=== PATIENT | male | born 1960 | race Caucasian/White ===

== ENCOUNTER 2024-04-23 09:18 | Outpatient (AMB) | payer OTHER, SELFPAY ==
[2024-04-23 10:06] VITALS: BP 129/76; PULSE 66; RESP 17; TEMP 36.3; O2SAT 17; BMI 28.9
--- NOTE | 2024-04-23 10:06 | ORTHONT_ITS ---
Vital signs 04/23/24 10:06 Height 1.7 m Height Method Stated Weight 83.716 kg Weight Measurement Method Standing Scale BMI 28.9 BP 129/76 Blood Pressure Source Automatic Cuff Blood Pressure Location Right Upper Arm Position Sitting Respiration 17 Pulse 66 Pulse Source Monitor Temp 97.3 F Temp Source Temporal Artery Scan Pulse Oximetry (%) 17 L Oxygen Delivery Method Room Air Med/Allergies Allergies & Medications Allergies No Known Allergies Allergy (Verified 04/23/24 10:06) Medication Reconciliation ibuprofen 600 mg tablet 600 mg PO Q8H PRN pain #30 tabs 03/23/23 [Rx Confirmed 04/23/24] baclofen 20 mg tablet 20 mg PO QDAY 04/23/24 [History Confirmed 04/23/24] cholecalciferol (vitamin D3) 1,250 mcg (50,000 unit) capsule 1,250 mcg PO QWEEK 04/23/24 [History Confirmed 04/23/24] lisinopril 20 mg tablet 20 mg PO QDAY 04/23/24 [History Confirmed 04/23/24] rosuvastatin 10 mg tablet 10 mg PO QDAY 04/23/24 [History Confirmed 04/23/24] Subjective Visit Visit for: new patient and hip Immunization / Flu Flu Vaccine in the Last 12 Months: No Flu Vaccine Exclusion Criteria: No Exclusion Criteria History of Present Illness Chief complaint: HISTORY OF HIP REPLACEMENT Armando is a pleasant 63-year-old male with a left total hip replacement 2 years ago 2021. He reports that the left hip is done well. He has right hip arthritis reports he has minimal pain at this time. He is not wanting anything done for this Review of Systems Review of Systems: All systems negative unless otherwise noted in HPI. Exam Exam Patient is in no acute distress and is cooperative with the examination today. Breathing is nonlabored. In no respiratory distress. Patient has no paraspinal tenderness. Spinal deformity [cannot] be appreciated. The gait of the patient is [nonantalgic] Bilateral extremities were evaluated and demonstrates sensation intact to light touch. Palpable pedal pulses are present. No significant edema is present. Bilateral knees were examined and the patient has full strength and range of mo tion.. The right hip was examined. Patient was able to flex to 90 degrees, adduct to 30 degrees, abduct to 40 degrees, internally rotate to 20 degrees, and externally rotate to 20 degrees. Patient has a negative logroll. Stinchfield is negative. The patient is nontender diffusely to touch. The left hip was examined. Patient was able to flex to [90] degrees, adduct to [30] degrees, abduct to [40] degrees, internally rotate to [20] degrees, and externally rotate to [20] degrees. Patient has a [negative] logroll. The stinchfield is [negative].Left hip incision is clean dry and intact X-rays demonstrate a cementless total hip replacement on the left. He is in good alignment position. On the right there is moderate to severe arthritis with complete obliteration of the joint space Assessment and Plan Problem List (1) History of left hip replacement: Status: Acute Plan: Patient is a 63-year-old male with a left total hip replacement done 2 years ago who is doing well. He reports that he is actually here for follow-up of his l eft hip replacement. We went over x-ray results and demonstrated that the left hip replacement looks like it is in good position alignment. We discussed that he has right hip arthritis. He does not want to do anything for that as he has no pain currently. We discussed that someone to see his hip replacement every 1 to 2 years. (2) Arthritis of right hip: Status: Acute Office Procedures GNS Level of Care Nursing/Assessment Patient Status: Established Patient Nursing Assessment/Reassesment: Medication Reconciliation, Update PMH in EMR and Vital Signs Coordination of Care: Complex Care and Chronic Disease 1-5, Education Complex Pt/Fam, Consent,records obtained, informed consent, Results/Orders obtained and Staff clarify orders Established Patient Charge Established Patient Point Assignment: 95 Established Patient Point Charge: EP Level 3 (80-115) Past Medical History Past Medical History Have you ever been diagnosed with any of the following: Cardiology Problems Hypercholesterolemia: Yes Hypertension: Yes Respiratory Problems Smoking: No Smoking Exposure: No
== END 2024-04-23 10:39 | disposition home or self-care (01) ==
LOC: HODSRG 09:18
PROVIDERS: PCP Nurse Practitioner Family; Referring Provider Nurse Practitioner Family; Supervising Provider Orthopaedic Surgery Adult Reconstructive Orthopaedic Surgery; Visit Provider Orthopaedic Surgery Adult Reconstructive Orthopaedic Surgery
DX: Z96.642 Presence of left artificial hip joint (principal); M16.11 Unilateral primary osteoarthritis, right hip; I10 Essential (primary) hypertension; E78.00 Pure hypercholesterolemia, unspecified
CPT/HCPCS: 99213; G0463